=== PATIENT | male | born 1955 | race Caucasian/White ===

== ENCOUNTER 2022-07-14 00:27 | Inpatient (IN) | payer MEDICARE ==
[~2022-07-14] VITALS: Ht 170.2 cm; Wt 69.9 kg
[2022-07-14] MEDS ORDERED: CALCIUM CHLORIDE 1GM/10ML SYR IV ONE (01:15)
[2022-07-14] MEDS ORDERED: DEXTROSE 50% WATER 50ML SYRINGE IV ONE (01:15)
[2022-07-14] MEDS ORDERED: SODIUM BICARBONATE 8.4% 1 MEQ/ML 50ML SYR IV ONE (01:15)
[2022-07-14] MEDS ORDERED: INSULIN REGULAR (HUMULIN R) 300UNITS/3ML VIAL IV ONE (01:15)
[2022-07-14] MEDS ORDERED: ALBUTEROL (0.083%) 2.5MG/3ML NEB HHN ONE (01:15)
[2022-07-14 01:29] LABS: BASOPHILS % 0.4 % (0.0-2.0); EOSINOPHILS % 1.8 % (0.0-5.0); HEMATOCRIT. 48.1 % (42.0-52.0); HEMOGLOBIN. 15.9 g/dL (14.0-18.0); LYMPHOCYTES % 16.9 % (20.0-50.0); MEAN CORPUSCULAR HEMOGLOBIN 23.2 pg (28.0-32.0); MEAN CORPUSCULAR VOLUME 70.2 fL (80.0-94.0); MEAN PLATELET VOLUME 9.1 fl (7.4-10.4); MONOCYTES % 9.5 % (2.0-8.0); NEUTROPHILS % 71.4 % (40.0-76.0); PLATELET 466 x1000/uL (130-400); RED BLOOD CELL COUNT 6.85 mill/uL (4.7-6.1); RED CELL DISTRIBUTION WIDTH 29.6 % (11.6-14.6)
[2022-07-14 01:42] LABS: CHLORIDE 98 mEq/L (98-107)
[2022-07-14] MEDS ORDERED: ALBUTEROL (0.083%) 2.5MG/3ML NEB HHN NR (04:30)
[2022-07-14 05:54] LABS: PLATELET ESTIMATE INCREASED
[2022-07-14 09:30] VITALS: BP 129/89
[2022-07-14 10:00] VITALS: BP 129/89
[2022-07-14] MEDS ORDERED: ACETAMINOPHEN 325MG TABLET PO PRN (10:30)
[2022-07-14] MEDS ORDERED: ONDANSETRON HCL 4MG/2ML INJ IV PRN (10:30)
[2022-07-14] MEDS ORDERED: CLONIDINE 0.1MG TABLET PO PRN (10:30)
[2022-07-14 12:00] VITALS: BP 105/70
[2022-07-14] MEDS: PANTOPRAZOLE SODIUM 40 MG/VIAL IV SCH (13:39)
[2022-07-14] MEDS: SODIUM CHLORIDE 0.9% 1,000 ML IV SCH (13:51)
[2022-07-14 15:49] LABS: CREATINE KINASE 29 IU/L (39-308)
[2022-07-14 15:55] LABS: PROSTRATE SPECIFIC AG TOTAL 0.39 ng/mL (0.0-4.0)
[2022-07-14 16:00] VITALS: BP 98/65
[2022-07-14 20:00] VITALS: BP 93/60
[2022-07-15] VITALS: BP 96/60
[2022-07-15] MEDS: SODIUM CHLORIDE 0.9% 1,000 ML IV SCH ×2 (00:21→13:10)
[2022-07-15 04:00] VITALS: BP 97/60
[2022-07-15 07:05] LABS: BASOPHILS % 0.9 % (0.0-2.0); EOSINOPHILS % 0.6 % (0.0-5.0); HEMATOCRIT. 50.6 % (42.0-52.0); HEMOGLOBIN. 16.4 g/dL (14.0-18.0); MEAN CORPUSCULAR HEMOGLOBIN 22.7 pg (28.0-32.0); MEAN CORPUSCULAR VOLUME 70.3 fL (80.0-94.0); MEAN PLATELET VOLUME 9.2 fl (7.4-10.4); MONOCYTES % 11.7 % (2.0-8.0); NEUTROPHILS % 75.8 % (40.0-76.0); PLATELET 468 x1000/uL (130-400); RED CELL DISTRIBUTION WIDTH 28.8 % (11.6-14.6)
[2022-07-15 07:18] LABS: PROTHROMBIN TIME 29.3 sec (9.6-11.0)
[2022-07-15 08:00] VITALS: BP 100/77
[2022-07-15] MEDS: PANTOPRAZOLE SODIUM 40 MG/VIAL IV SCH (09:00)
[2022-07-15 12:00] VITALS: BP 104/62
[2022-07-15 16:00] VITALS: BP 103/74
[2022-07-15 20:00] VITALS: BP 105/68
[2022-07-16] VITALS: BP 99/78
[2022-07-16] MEDS: SODIUM CHLORIDE 0.9% 1,000 ML IV SCH ×2 (02:30→15:50)
[2022-07-16 07:45] LABS: BASOPHILS % 0.6 % (0.0-2.0); EOSINOPHILS % 0.4 % (0.0-5.0); HEMATOCRIT. 49.1 % (42.0-52.0); LYMPHOCYTES % 9.3 % (20.0-50.0); MEAN CORPUSCULAR HEMOGLOBIN 23.1 pg (28.0-32.0); MEAN CORPUSCULAR VOLUME 70.6 fL (80.0-94.0); MEAN PLATELET VOLUME 9.1 fl (7.4-10.4); NEUTROPHILS % 81.7 % (40.0-76.0); PLATELET 493 x1000/uL (130-400); RED BLOOD CELL COUNT 6.95 mill/uL (4.7-6.1); RED CELL DISTRIBUTION WIDTH 29.2 % (11.6-14.6)
[2022-07-16] MEDS: PANTOPRAZOLE SODIUM 40 MG/VIAL IV SCH (09:46)
[2022-07-16] MEDS: CITRIC ACID/SODIUM CITRATE SOLN 30ML UDC PO SCH ×3 (09:46→17:00)
[2022-07-16 12:00] VITALS: BP 126/85
[2022-07-16] MEDS ORDERED: CITR473S PO (13:20)
[2022-07-16 20:00] VITALS: BP 95/61
[2022-07-17 04:00] VITALS: BP 95/55
[2022-07-17] MEDS: SODIUM CHLORIDE 0.9% 1,000 ML IV SCH ×2 (05:10→18:07)
[2022-07-17 07:05] LABS: HEMATOCRIT. 49.8 % (42.0-52.0); HEMOGLOBIN. 16.4 g/dL (14.0-18.0); MEAN CORPUSCULAR HEMOGLOBIN 23.3 pg (28.0-32.0); MEAN CORPUSCULAR VOLUME 70.5 fL (80.0-94.0); PLATELET 462 x1000/uL (130-400); RED BLOOD CELL COUNT 7.07 mill/uL (4.7-6.1); RED CELL DISTRIBUTION WIDTH 29.3 % (11.6-14.6)
[2022-07-17 08:00] VITALS: BP 84/53
[2022-07-17] MEDS: PANTOPRAZOLE SODIUM 40 MG/VIAL IV SCH (09:00)
[2022-07-17] MEDS: CITRIC ACID/SODIUM CITRATE SOLN 30ML UDC PO SCH ×2 (09:00→16:57)
[2022-07-17 09:56] LABS: NUCLEATED RED BLOOD CELLS 1 /100 WBC; PLATELET ESTIMATE SLIGHTLY INCREASED
[2022-07-17 12:00] VITALS: BP 90/60
[2022-07-17 16:00] VITALS: BP 112/70
[2022-07-17 20:00] VITALS: BP 106/49
[2022-07-17 23:43] VITALS: BP 104/52
[2022-07-18] MEDS ORDERED: SODIUM POLYSTYRENE SULFONATE 15 G/60 ML BOT PO NR (03:30)
[2022-07-18 04:00] VITALS: BP 104/62
[2022-07-18 07:08] LABS: BASOPHILS % 0.3 % (0.0-2.0); EOSINOPHILS % 0.5 % (0.0-5.0); HEMATOCRIT. 48.4 % (42.0-52.0); HEMOGLOBIN. 16.2 g/dL (14.0-18.0); LYMPHOCYTES % 9.8 % (20.0-50.0); MEAN CORPUSCULAR HEMOGLOBIN 23.6 pg (28.0-32.0); MEAN CORPUSCULAR VOLUME 70.5 fL (80.0-94.0); MONOCYTES % 5.1 % (2.0-8.0); NEUTROPHILS % 84.3 % (40.0-76.0); PLATELET 436 x1000/uL (130-400); RED BLOOD CELL COUNT 6.86 mill/uL (4.7-6.1); RED CELL DISTRIBUTION WIDTH 29.5 % (11.6-14.6)
[2022-07-18] MEDS: PANTOPRAZOLE SODIUM 40 MG/VIAL IV SCH (08:52)
[2022-07-18] MEDS: CITRIC ACID/SODIUM CITRATE SOLN 30ML UDC PO SCH ×3 (09:00→16:36)
[2022-07-18 12:00] VITALS: BP 102/72
[2022-07-18 16:00] VITALS: BP 106/97
[2022-07-18] MEDS: SODIUM CHLORIDE 0.9% 1,000 ML IV SCH ×2 (16:33→21:08)
[2022-07-18 20:00] VITALS: BP 100/68
[2022-07-19] VITALS (36 sets, daily range): BP systolic 54–180; BP diastolic 20–94
[2022-07-19 06:54] LABS: HEMATOCRIT. 47.1 % (42.0-52.0); MEAN CORPUSCULAR VOLUME 72.2 fL (80.0-94.0); RED BLOOD CELL COUNT 6.53 mill/uL (4.7-6.1); RED CELL DISTRIBUTION WIDTH 30.9 % (11.6-14.6)
[2022-07-19 09:18] LABS: NUCLEATED RED BLOOD CELLS 1 /100 WBC
[2022-07-19 09:19] LABS: PLATELET ESTIMATE NORMAL
[2022-07-19 09:20] LABS: MEAN PLATELET VOLUME 9.1 fl (7.4-10.4); PLATELET 357 x1000/uL (130-400)
[2022-07-19] MEDS: PANTOPRAZOLE SODIUM 40 MG/VIAL IV SCH ×2 (10:00→10:01)
[2022-07-19] MEDS ORDERED: SODIUM BICARBONATE 100 MEQ in DEXTROSE 5% WATER 1,000 ML IV SCH (10:00)
[2022-07-19] MEDS: CITRIC ACID/SODIUM CITRATE SOLN 30ML UDC PO SCH ×3 (10:01→18:20)
[2022-07-19] MEDS ORDERED: SODIUM CHLORIDE 0.9% 250 ML IV ONE (12:30)
[2022-07-19] MEDS: MIDODRINE HCL 5MG TABLET PO SCH ×2 (13:41→17:00)
[2022-07-19] MEDS ORDERED: ALBUMIN HUMAN 25GM/500ML (5%) IV NR (14:00)
[2022-07-19] MEDS ORDERED: MEROPENEM 1,000 MG in SODIUM CHLORIDE 0.9% 100 ML IV SCH (15:30)
[2022-07-19] MEDS ORDERED: NOREPINEPHRINE 8MG/250ML PMX 250 ML IV PRN (16:30)
[2022-07-19] MEDS ORDERED: DEXT 5%/0.45% NACL 1000ML 1,000 ML IV SCH (16:30)
[2022-07-19] MEDS ORDERED: LINEZOLID 600 MG PREMIX 300 ML IV SCH (18:00)
[2022-07-19] MEDS: CEFEPIME 1,000 MG in DEXTROSE 5% WATER 50 ML IV SCH (18:20)
[2022-07-19] MEDS: NOREPINEPHRINE 8 MG in DEXTROSE 5% WATER 250 ML IV PRN (19:21)
[2022-07-19] MEDS: METRONIDAZOLE 500MG TABLET PO SCH (21:20)
[2022-07-19 23:16] LABS: HEMATOCRIT 46.8 % (42.0-52.0); MEAN CORPUSCULAR HEMOGLOBIN 23.1 pg (28.0-32.0); PLATELET 344 x1000/uL (130-400); RED CELL DISTRIBUTION WIDTH 30.3 % (11.6-14.6)
[2022-07-20] VITALS (155 sets, daily range): BP systolic 34–170; BP diastolic 19–118
[2022-07-20] MEDS: NOREPINEPHRINE 8 MG in DEXTROSE 5% WATER 250 ML IV PRN (04:58)
[2022-07-20] MEDS: METRONIDAZOLE 500MG TABLET PO SCH ×2 (05:01→14:21)
[2022-07-20 05:21] LABS: BASOPHILS % 0.1 % (0.0-2.0); EOSINOPHILS % 0.7 % (0.0-5.0); HEMATOCRIT. 45.5 % (42.0-52.0); HEMOGLOBIN. 14.7 g/dL (14.0-18.0); MEAN CORPUSCULAR HEMOGLOBIN 23.1 pg (28.0-32.0); MEAN CORPUSCULAR VOLUME 71.3 fL (80.0-94.0); NEUTROPHILS % 89.2 % (40.0-76.0); RED BLOOD CELL COUNT 6.38 mill/uL (4.7-6.1); RED CELL DISTRIBUTION WIDTH 31.5 % (11.6-14.6)
[2022-07-20] MEDS ORDERED: POTASSIUM CHLORIDE INJ 40 MEQ in DEXT 5% WATER 250 ML IV ONE (05:45)
[2022-07-20 06:06] LABS: PHOSPHORUS 5.9 mg/dL (2.5-4.9)
[2022-07-20 08:14] LABS: BG BASE EXCESS -13.3 mmol/L (-2.0-2.0); BG CARBOXYHEMOGLOBIN 1.9 % (0.5-1.5); BG FRACTION INSPIRED OXYGEN 100; BG HCO3 ACT 12.2 mmol/L (22.0-26.0); BG METHEMOGLOBIN 0.4 % (0.0-1.5); BG OXYGEN SATURATION 95.9 % (92.0-98.5); BG OXYHEMOGLOBIN 93.7 % (94.0-97.0); BG PCO2 28.3 mmHg (35.0-45.0); BG PH 7.253 (7.350-7.450); BG PO2 88.4 mmHg (75.0-100.0); BG SAMPLE SITE RIGHT RADIAL; BG TOTAL HEMOGLOBIN 15.6 g/dL (12.0-18.0); BG VENT MODE MASK - NRB
[2022-07-20] MEDS ORDERED: VASOPRESSIN 20 UNIT in SODIUM CHLORIDE 0.9% 99 ML IV PRN (08:30)
[2022-07-20] MEDS ORDERED: LIDOCAINE HCL 1% 10 MG/ML 10ML VIAL ONE (08:40)
[2022-07-20] MEDS ORDERED: ALBUMIN HUMAN 25GM/100ML (25%) IV NR (09:00)
[2022-07-20] MEDS ORDERED: SODIUM BICARBONATE 8.4% 1 MEQ/ML 50ML SYR IV NR ×2 (09:00→12:30)
[2022-07-20] MEDS ORDERED: PROPOFOL 10MG/ML 100ML 100 ML IV PRN (09:00)
[2022-07-20 09:27] LABS: MEAN PLATELET VOLUME 8.8 fl (7.4-10.4)
[2022-07-20 09:28] LABS: PLATELET 343 x1000/uL (130-400)
[2022-07-20] MEDS ORDERED: SODIUM BICARBONATE 100 MEQ in DEXTROSE 5% WATER 1,000 ML IV SCH (09:30)
[2022-07-20] MEDS: KCL 20MEQ/100ML X 2 FOR TOTAL KCL 40MEQ/200ML IV SCH ×2 (09:48→12:16)
[2022-07-20] MEDS: MIDODRINE HCL 5MG TABLET PO SCH ×3 (09:49→16:13)
[2022-07-20] MEDS: CITRIC ACID/SODIUM CITRATE SOLN 30ML UDC PO SCH ×3 (09:49→16:13)
[2022-07-20] MEDS ORDERED: NOREPINEPHRINE 32 MG in DEXT 5% WATER 218 ML IV PRN (10:00)
[2022-07-20 11:14] LABS: BG BASE EXCESS -11.4 mmol/L (-2.0-2.0); BG CARBOXYHEMOGLOBIN 1.3 % (0.5-1.5); BG DEOXYHEMOGLOBIN 2.5 % (0.0-5.0); BG FRACTION INSPIRED OXYGEN 100; BG HCO3 ACT 15.4 mmol/L (22.0-26.0); BG METHEMOGLOBIN 0.9 % (0.0-1.5); BG OXYGEN SATURATION 97.4 % (92.0-98.5); BG OXYHEMOGLOBIN 95.3 % (94.0-97.0); BG PCO2 38.1 mmHg (35.0-45.0); BG PH 7.225 (7.350-7.450); BG PO2 110.5 mmHg (75.0-100.0); BG SAMPLE SITE RIGHT RADIAL; BG TOTAL HEMOGLOBIN 15.8 g/dL (12.0-18.0); BG VENT MODE VENT - AC
[2022-07-20 11:17] LABS: CLARITY URINE TURBID (CLEAR); COLOR URINE RED (YELLOW); KETONES URINE NEGATIVE (NEGATIVE); LEUKOCYTE ESTERASE URINE 2+ (NEGATIVE); NITRITE URINE POSITIVE (NEGATIVE); OCCULT BLOOD URINE 3+ (NEGATIVE); PH URINE 5.5 (4.5-8.0); PROTEIN URINE 2+ (NEGATIVE); SPECIFIC GRAVITY URINE 1.006 (1.005-1.030); UROBILINOGEN URINE 0.2 E.U./dL (0.2-1.0)
[2022-07-20] MEDS ORDERED: IPRATROPIUM/ALBUTEROL 0.5-3(2.5)MG/3ML NEB HHN SCH (12:00)
[2022-07-20 13:03] LABS: HEMOGLOBIN 14.8 g/dL (14.0-18.0); MEAN CORPUSCULAR HEMOGLOBIN 23.1 pg (28.0-32.0); MEAN CORPUSCULAR VOLUME 71.9 fL (80.0-94.0); RED CELL DISTRIBUTION WIDTH 31.6 % (11.6-14.6)
[2022-07-20 13:33] LABS: PROTHROMBIN TIME > 100.0 sec (9.6-11.0)
[2022-07-20 13:37] LABS: INR > 10.0
[2022-07-20 13:46] LABS: PLATELET 362 x1000/uL (130-400)
[2022-07-20 16:34] LABS: BG BASE EXCESS -10.7 mmol/L (-2.0-2.0); BG CARBOXYHEMOGLOBIN 1.4 % (0.5-1.5); BG DEOXYHEMOGLOBIN 3.6 % (0.0-5.0); BG FRACTION INSPIRED OXYGEN 100; BG HCO3 ACT 14.5 mmol/L (22.0-26.0); BG METHEMOGLOBIN 0.6 % (0.0-1.5); BG OXYGEN SATURATION 96.3 % (92.0-98.5); BG OXYHEMOGLOBIN 94.4 % (94.0-97.0); BG PCO2 31.5 mmHg (35.0-45.0); BG PH 7.282 (7.350-7.450); BG PO2 90.1 mmHg (75.0-100.0); BG SAMPLE SITE RIGHT RADIAL; BG TOTAL HEMOGLOBIN 16.3 g/dL (12.0-18.0); BG VENT MODE VENT - AC
[2022-07-20] MEDS: CEFEPIME 1,000 MG in DEXTROSE 5% WATER 50 ML IV SCH (17:36)
[2022-07-20] MEDS ORDERED: MORPHINE SULFATE 250 MG in DEXT 5% WATER 225 ML IV PRN (19:30)
[2022-07-21] MEDS ORDERED: FOLIC ACID/VITAMIN B COMP W-C TABLET PO SCH (16:00)
== END 2022-07-20 21:50 | DRG 435 ==
LOC: ER 00:35 → 6WST 04:42 → ENRESERV 06:53 → ER 09:00 → MICUNO 07-19 17:00
PROVIDERS: ADMIT Internal Medicine; ATTEND Internal Medicine
PROC: 5A1935Z Respiratory Ventilation, Less than 24 Consecutive Hours (ICD-10-PCS; principal; 2022-07-20)
PROC: 0BH17EZ Insertion of Endotracheal Airway into Trachea, Via Natural or Artificial Opening (ICD-10-PCS; 2022-07-20)
PROC: 02HV33Z Insertion of Infusion Device into Superior Vena Cava, Percutaneous Approach (ICD-10-PCS; 2022-07-20)
PROC: B548ZZA Ultrasonography of Superior Vena Cava, Guidance (ICD-10-PCS; 2022-07-20)
DX: C22.0 Liver cell carcinoma (principal); A41.9 Sepsis, unspecified organism; K65.2 Spontaneous bacterial peritonitis; E43 Unspecified severe protein-calorie malnutrition; I81 Portal vein thrombosis; J96.91 Respiratory failure, unspecified with hypoxia; N17.9 Acute kidney failure, unspecified; E87.1 Hypo-osmolality and hyponatremia; R57.9 Shock, unspecified; C77.9 Secondary and unspecified malignant neoplasm of lymph node, unspecified; E86.1 Hypovolemia; E88.09 Other disorders of plasma-protein metabolism, not elsewhere classified; Z66 Do not resuscitate; Z20.822 Contact with and (suspected) exposure to COVID-19; R16.2 Hepatomegaly with splenomegaly, not elsewhere classified; K70.31 Alcoholic cirrhosis of liver with ascites; R13.10 Dysphagia, unspecified; K80.20 Calculus of gallbladder without cholecystitis without obstruction; N18.9 Chronic kidney disease, unspecified; J44.9 Chronic obstructive pulmonary disease, unspecified; I25.10 Atherosclerotic heart disease of native coronary artery without angina pectoris; E86.9 Volume depletion, unspecified; B19.20 Unspecified viral hepatitis C without hepatic coma; F41.9 Anxiety disorder, unspecified; F15.90 Other stimulant use, unspecified, uncomplicated; F17.210 Nicotine dependence, cigarettes, uncomplicated; F10.20 Alcohol dependence, uncomplicated; Z91.199 Patient's noncompliance with other medical treatment and regimen due to unspecified reason; I25.2 Old myocardial infarction; Z68.24 Body mass index [BMI] 24.0-24.9, adult; Z59.00 Homelessness unspecified; Z74.01 Bed confinement status
CPT/HCPCS: 31500; 36415; 36573; 36600; 71045; 71250; 74176; 76700; 76705; 78580; 80048; 80053; 80076; 81003; 82105; 82140; 82248; 82375; 82378; 82550; 82805; 82962; 83735; 83880; 84100; 84145; 84153; 84484; 85025; 85027; 85384; 86301; 87070; 87077; 87186; 87426; 92610; 93970; 94003; 94640; 94644; 99285; A6261; C1725; C9113; J0692; J1815; J2020; J2185; J2405; J2704; J3480; J3490; J7030; J7050; J7060; J7070; P9041; P9047; A4315; G0103